=== PATIENT | female | born 1930 | race Caucasian/White ===

== ENCOUNTER → 2017-11-04 | Outpatient (CLI) | payer MEDICARE, MEDICAID ==
[~2017-11-04] MED LIST: ASP325 PO; CRANBERRY PILLS; EZET1TAB64 PO; GLY5 PO; HCTZ25 PO; IRBE300T11 PO; MET50 PO; METF-1 PO; MULTI VITAMINS; PRO500 PO
--- NOTE | 2017-11-04 14:37 | RADIOLOGY IMAGING REPORT ---
FACILITY: [facility] PATIENT NAME: Sandra Valladares : 1930 MR: [id number] V: [id number] EXAM DATE: ORDERING PHYSICIAN: ROSY HILL TECHNOLOGIST: Location: [facility] Patient: Sandra Valladares : 1930 Visit/Account:[id number] Date of Sevice: 11/04/2017 Exam type: CERVICAL SPINE 2 OR 3 VIEW History: Neck pain post injury history of gout Comparison: None. Findings: There is a 2 mm anterior listhesis of C4 with respect to C5. There are severe disc space narrowing a t C5-6 and C6-7 moderate disc space narrowing at C7-T1 and mild disc space narrowing C2-C3 five. Ant erior osteophytes are seen from C4 to C7. There is severe narrowing between the right lateral mass o f C1 and the body of C2. This moderate narrowing seen between the left lateral mass of C1 and the le ft body of C2. There is no evidence of prevertebral soft tissue swelling. There is extensive vascul ar calcifications left side of the neck IMPRESSION: 1. 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
== END ==
LOC: RAD 10:41
PROVIDERS: ATTEND Physician Assistant Medical
DX: M47.892 Other spondylosis, cervical region (principal)
CPT/HCPCS: 72040